=== PATIENT | male | born 1985 | race Caucasian/White ===

== ENCOUNTER 2024-04-27 07:17 | Emergency (ER) | payer SELFPAY ==
[~2024-04-27] VITALS: Ht 165.1 cm; Wt 63.9 kg
[2024-04-27 07:20] VITALS: O2SAT 99
[2024-04-27] MEDS ORDERED: CEFP200T13 MT (08:21)
[2024-04-27] MEDS ORDERED: TOPUD PO (08:21)
[2024-04-27] MEDS ORDERED: CEFP100S5 PO (08:25)
[2024-04-27 09:03] VITALS: BP 124/54
[2024-04-27] MEDS: IBUPROFEN 600MG TABLET PO NR (09:03)
[2024-04-27 09:06] VITALS: PULSE 69; RESP 18; TEMP 37.05852; O2SAT 99
== END 2024-04-27 09:05 | disposition home or self-care (01) ==
LOC: ER 07:17
DX: H66.91 Otitis media, unspecified, right ear (principal); Z91.013 Allergy to seafood
CPT/HCPCS: 99283